=== PATIENT | male | born 2000 | race Caucasian/White ===

== ENCOUNTER 2019-01-09 07:08 | Outpatient (CLI) | payer OTHER ==
--- NOTE | 2019-01-09 09:01 | ULT ---
ABDOMINAL ULTRASOUND COMPLETE: Date: 01/09/19 HISTORY: Elevated LFTs. FINDINGS: Mild hepatomegaly measuring up to 18.3 cm. Slightly heterogeneous liver echogenicity. The gallbladder demonstrates no evidence of gallstones, wall thickening, edema, or pericholecystic fluid. Common fausto e duct 0.3 cm. No focal liver masses. Visualized pancreas, IVC, aorta, and spleen are unremarkable. N o renal hydronephrosis. Negative Crenshwa's sign. IMPRESSION: Mild hepatomegaly. No common duct dilatation. No other significant acute process. POS: [facility]
== END 2019-01-09 07:09 | disposition home or self-care (01) ==
LOC: SCSULT 07:08
DX: R19.7 Diarrhea, unspecified (principal); R74.0 Nonspecific elevation of levels of transaminase and lactic acid dehydrogenase [LDH]; R14.0 Abdominal distension (gaseous); R16.0 Hepatomegaly, not elsewhere classified
CPT/HCPCS: 76700